=== PATIENT | female | born 1985 ===

== ENCOUNTER 2017-03-12 06:43 | Inpatient (IN) | payer OTHER, MEDICAID ==
[2017-03-12 07:05] VITALS: BMI 30.9
[2017-03-12] MEDS ORDERED: Sodium Citrate/Citric Acid 15 ml Sol PO ONE (07:05)
[2017-03-12] MEDS ORDERED: Lactated Ringer's 1,000 ML IV SCH ×2 (07:15)
[2017-03-12] MEDS ORDERED: Clindamycin 600mg/50ml NS 600 MG/50 ML BAG IVPB SCH (08:00)
[2017-03-12] MEDS ORDERED: Clindamycin 600mg/50ml NS 600 MG/50 ML BAG IVPB ONE (08:13)
[2017-03-12] MEDS ORDERED: Sodium Citrate/Citric Acid 15 ml Sol ONE (08:14)
[2017-03-12 08:58] LABS: BASO % 0.3 % (0.0-2.0); EOS # 0.1 K/uL (0.0-0.7); EOS % 0.7 % (0.0-4.0); HEMOGLOBIN 11.8 g/dL (11.0-16.0); LYMPH # 2.3 K/uL (1.0-4.3); LYMPH % 28.4 % (20.0-40.0); MEAN CORPUSCULAR HEMOGLOBIN 30.5 pg (27.0-31.0); MEAN CORPUSCULAR HGB CONC 34.3 g/dL (33.0-37.0); MEAN PLATELET VOLUME 11.4 fL (7.2-11.7); MONO # 0.7 K/uL (0.0-0.8); MONO % 8.6 % (0.0-10.0); NEUT # 5.1 K/uL (1.8-7.0); RBC 3.86 Mil/uL (3.80-5.20); RED CELL DISTRIBUTION WIDTH 14.4 % (11.5-14.5); WHITE BLOOD COUNT 8.2 K/uL (4.8-10.8)
[2017-03-12 09:04] LABS: SQUAMOUS EPITHIAL 2 /hpf (0-5); URINE BACTERIA OCC (<OCC); URINE BILIRUBIN NEGATIVE (NEGATIVE); URINE BLOOD NEGATIVE (NEGATIVE); URINE CLARITY Clear (Clear); URINE COLOR Yellow (YELLOW); URINE GLUCOSE (UA) NORMAL (Normal); URINE LEUKOCYTE ESTERASE NEG Leu/uL (Negative); URINE NITRATE NEGATIVE (NEGATIVE); URINE PROTEIN 1+ mg/dL (NEGATIVE); URINE UROBILINOGEN NORMAL mg/dL (0.2-1.0)
[2017-03-12 09:07] LABS: ALB/GLOB RATIO 1.1 (1.0-2.1); ALBUMIN 3.7 g/dL (3.5-5.0); ALT/SGPT 26 U/L (9-52); AST/SGOT 29 U/L (14-36); BLOOD UREA NITROGEN 11 mg/dL (7-17); CALCIUM 8.9 mg/dl (8.6-10.4); GFR AFRICAN-AMERICAN > 60; GFR NON-AFRICAN AMERICAN > 60
[2017-03-12] MEDS ORDERED: Morphine 1 mg/ml preservative-free Inj(Duramorph) ONE (09:08)
--- NOTE | 2017-03-12 10:05 | OBHP ---
Datetime: 03/12/2017 07:29 IP Adm Impression: Term, intrauterine ; No Active Labor IP Admit Plan: Admit to unit; Initiate Section protocol Admit Comment, IP Provider: Patient is a 31 year old at 39 weeks with LMP (06/15/16) and EDC ( 03/22/17) who presents complaining of abdominal pain and contractions that started at 3am this morning which she rates an 8/10. Patient is feeling the baby move and denies any bleeding or discharge from the vagina. Patient denies nausea, vomiting, chest pain. Patient last saw Dr. Cunningham last week and h as had anemia throughout this . ObHx: 1 (10/16/2009) due to failed trial of labor at 40 weeks, baby girl 7.5lbs. 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 Patient to [facility] in 2014 and have been together s abbi 2007 A/P 31 y/o F at 39 weeks, previous C/Section with uterine contractions. Category 1 tracin g. 1. stable, afebrile 2. Admit to L_D 3. See EFM and TOCO 4. Admission labs- see orders 5. Anesthesia Consult 6. NPO 7. Mcnulty insertion 8. Plans discussed with attending Dee Dee Sanchez, PGY1 Attending Note: patient seen and evaluated with Resident. I agree with the above. Patient is clini berkley stable. Plan: 1) as above - as per and discussed with Dr. Cunningham Pelvic Type - PN: Not Done Extremities - PN: Normal Abdomen - PN: Normal Breast - PN: Not Done Lungs - PN: Normal Heart - PN: Normal HEENT - PN: Normal General - PN: Normal FHR - Baseline A Provider: 140 Contraction Comments Provider: 2-5 Comments, ACOG Physical Exam: Abdomen: gravid. Soft. Fundal height 38 cm Gestation - Est Wks by US: 39.0 IP Hx Assessment: The History has been Reviewed and is Current EGA AdmitDate IP: 38.4 Vital Signs Provider: Reviewed IP Chief Complaint: Uterine contractions NICHD Variability Prov Fetus A: Moderate 6-25bpm NICHD Accel Fetus A IP Provider: 15X15 FHR Category Provider Fetus A: Category I NICHD Decel Fetus A IP Provider: None Dilatation, Provider: deferred Genitourinary Exam: Normal DTRs - PN: Not Done
[2017-03-13] MEDS: Folic Acid/Ascorbic Acid/Ferrous Sulfate 1 Tab PO SCH (10:19)
[2017-03-13] MEDS: Prenatal Multivit/Folic Acid/Iron Tab PO SCH (10:20)
[2017-03-13] MEDS ORDERED: Oxycodone/Acetaminophen 5/325 mg Tab PO PRN (13:24)
[2017-03-13] MEDS: Simethicone 80 mg Chewtab PO SCH ×3 (13:47→21:15)
[2017-03-13 19:21] LABS: BASO % 0.3 % (0.0-2.0); EOS # 0.1 K/uL (0.0-0.7); EOS % 0.4 % (0.0-4.0); HEMOGLOBIN 10.9 g/dL (11.0-16.0); LYMPH # 1.9 K/uL (1.0-4.3); MEAN CELL VOLUME 90.3 fL (81.0-99.0); MEAN CORPUSCULAR HGB CONC 33.2 g/dL (33.0-37.0); MEAN PLATELET VOLUME 9.7 fL (7.2-11.7); MONO # 1.1 K/uL (0.0-0.8); MONO % 7.8 % (0.0-10.0); NEUT # 10.8 K/uL (1.8-7.0); NEUT % 77.5 % (50.0-75.0); RBC 3.64 Mil/uL (3.80-5.20); RED CELL DISTRIBUTION WIDTH 14.9 % (11.5-14.5)
[2017-03-13 19:30] LABS: WHITE BLOOD COUNT 13.9 K/uL (4.8-10.8)
[2017-03-13] MEDS: Oxycodone/Acetaminophen 5/325 mg Tab PO PRN (21:15)
[2017-03-14] MEDS: Prenatal Multivit/Folic Acid/Iron Tab PO SCH (09:22)
[2017-03-14] MEDS: Simethicone 80 mg Chewtab PO SCH ×4 (09:22→22:20)
[2017-03-14] MEDS: Folic Acid/Ascorbic Acid/Ferrous Sulfate 1 Tab PO SCH (09:22)
[2017-03-14] MEDS: Oxycodone/Acetaminophen 5/325 mg Tab PO PRN (11:51)
[2017-03-14] MEDS ORDERED: Bisacodyl 5mg EC Tab PO ONE (13:27)
--- NOTE | 2017-03-14 18:45 | PCM.SURG1 ---
Surgeon's Initial Post Op Note - Surgeon's Notes Surgeon: Dr Childs Director [employer]: Dr Perkins Type of Anesthesia: Spinal Anesthesia Administered By: Dr Aden Pre-Operative Diagnosis: 31 yo that came in labor For Repeat Csection Operative Findings: Av uterus female infant Vtx Nl tubes and Ovaries , Lysis of adhesion Post-Operative Diagnosis: Same as above , Multiple adhesion Operation Performed: Repeat Csection , Lysis of adhesion Specimen/Specimens Removed: Cord ph Estimated Blood Loss: EBL {In ML}: 600 Blood Products Given: N/A Drains Used: No Drains Post-Op Condition: Good Date of Surgery/Procedure: 03/12/17 Time of Surgery/Procedure: 11:00
--- NOTE | 2017-03-14 18:48 | CP.PCM.PN ---
Subjective - Date & Time of Evaluation Date of Evaluation: 03/13/17 - Subjective Subjective: S/P Repeat csection Objective - Vital Signs/Intake and Output Vital Signs (last 24 hours): Temp Pulse Resp BP Pulse Ox 98.4 F 82 20 114/70 98 03/14/17 16:00 03/14/17 16:00 03/14/17 16:00 03/14/17 16:00 03/14/17 16:00 - Medications Medications: Current Medications Acetaminophen (Tylenol 325mg Tab) 650 mg PO Q6 PRN PRN Reason: Pain, Mild (1-3) Ascorbic Ac/Ferrous Sulf/Folic Acid (Iberet-Folic 500) 1 ter PO DAILY [facility] Last Admin: 03/14/17 09:22 Dose: 1 ter Docusate Sodium (Colace) 100 mg PO BID [facility] Last Admin: 03/14/17 17:25 Dose: 100 mg Ferrous Sulfate (Feosol) 325 mg PO DAILY [facility] Last Admin: 03/14/17 09:22 Dose: 325 mg Lactated Ringer's (Lactated Ringer's) 1,000 mls @ 125 mls/hr IV .Q8H [facility] Ibuprofen (Motrin Tab) 800 mg PO Q6H PRN PRN Reason: Pain, moderate (4-7) Last Admin: 03/13/17 13:46 Dose: 800 mg Ondansetron HCl (Zofran Inj) 4 mg IVP ONCE PRN PRN Reason: Nausea/Vomiting Oxycodone/Acetaminophen (Percocet 5/325 Mg Tab) 1 tab PO Q4H PRN PRN Reason: Pain, severe (8-10) Stop: 03/16/17 13:25 Last Admin: 03/14/17 05:00 Dose: 1 tab Oxycodone/Acetaminophen (Percocet 5/325 Mg Tab) 2 tab PO Q4H PRN PRN Reason: Pain, severe (8-10) Stop: 03/16/17 13:25 Last Admin: 03/14/17 11:51 Dose: 2 tab Multivit/Folic Acid/Iron () 1 tab PO DAILY [facility] Last Admin: 03/14/17 09:22 Dose: 1 tab Sennosides (Senokot Tab) 17.2 mg PO HS [facility] Last Admin: 03/13/17 21:14 Dose: 17.2 mg Simethicone (Mylicon Chew Tab) 80 mg PO QID [facility] Last Admin: 03/14/17 17:25 Dose: 80 mg - Labs Labs: 03/13/17 19:15 03/12/17 08:42 - Constitutional Appears: Well - Head Exam Head Exam: ATRAUMATIC, NORMAL INSPECTION, NORMOCEPHALIC - Eye Exam Eye Exam: EOMI, Normal appearance, PERRL Pupil Exam: NORMAL ACCOMODATION, PERRL - ENT Exam ENT Exam: Mucous Membranes Moist, Normal Exam - Neck Exam Neck Exam: Full ROM, Normal Inspection. absent: Lymphadenopathy - Respiratory Exam Respiratory Exam: Clear to Ausculation Bilateral, NORMAL BREATHING PATTERN - Cardiovascular Exam Cardiovascular Exam: REGULAR RHYTHM, +S1, +S2. absent: Murmur - GI/Abdominal Exam GI & Abdominal Exam: Soft, Normal Bowel Sounds. absent: Tenderness - Rectal Exam Rectal Exam: NORMAL INSPECTION - Exam Exam: Circumcision, NORMAL INSPECTION External exam: NORMAL EXTERNAL EXAM Speculum exam: NORMAL SPECULUM EXAM Bimanual exam: NORMAL BIMANUAL EXAM - Extremities Exam Extremities Exam: Full ROM, Normal Capillary Refill, Normal Inspection. absent : Joint Swelling, Pedal Edema - Back Exam Back Exam: NORMAL INSPECTION - Neurological Exam Neurological Exam: Alert, Awake, CN II-XII Intact, Normal Gait, Oriented x3 - Psychiatric Exam Psychiatric exam: Normal Affect, Normal Mood - Skin Skin Exam: Dry, Intact, Normal Color, Warm Assessment and Plan - Assessment and Plan (Free Text) Assessment: 31 S/P Repeat csection x2 Plan: Clinically stable
--- NOTE | 2017-03-14 18:51 | CP.PCM.PN ---
Subjective - Date & Time of Evaluation Date of Evaluation: 03/14/17 Time of Evaluation: 18:49 - Subjective Subjective: 31 yo S/P Repeat POD# 2 Objective - Vital Signs/Intake and Output Vital Signs (last 24 hours): Temp Pulse Resp BP Pulse Ox 98.4 F 82 20 114/70 98 03/14/17 16:00 03/14/17 16:00 03/14/17 16:00 03/14/17 16:00 03/14/17 16:00 - Medications Medications: Current Medications Acetaminophen (Tylenol 325mg Tab) 650 mg PO Q6 PRN PRN Reason: Pain, Mild (1-3) Ascorbic Ac/Ferrous Sulf/Folic Acid (Iberet-Folic 500) 1 ter PO DAILY [facility] Last Admin: 03/14/17 09:22 Dose: 1 ter Docusate Sodium (Colace) 100 mg PO BID [facility] Last Admin: 03/14/17 17:25 Dose: 100 mg Ferrous Sulfate (Feosol) 325 mg PO DAILY [facility] Last Admin: 03/14/17 09:22 Dose: 325 mg Lactated Ringer's (Lactated Ringer's) 1,000 mls @ 125 mls/hr IV .Q8H [facility] Ibuprofen (Motrin Tab) 800 mg PO Q6H PRN PRN Reason: Pain, moderate (4-7) Last Admin: 03/13/17 13:46 Dose: 800 mg Ondansetron HCl (Zofran Inj) 4 mg IVP ONCE PRN PRN Reason: Nausea/Vomiting Oxycodone/Acetaminophen (Percocet 5/325 Mg Tab) 1 tab PO Q4H PRN PRN Reason: Pain, severe (8-10) Stop: 03/16/17 13:25 Last Admin: 03/14/17 05:00 Dose: 1 tab Oxycodone/Acetaminophen (Percocet 5/325 Mg Tab) 2 tab PO Q4H PRN PRN Reason: Pain, severe (8-10) Stop: 03/16/17 13:25 Last Admin: 03/14/17 11:51 Dose: 2 tab Multivit/Folic Acid/Iron () 1 tab PO DAILY [facility] Last Admin: 03/14/17 09:22 Dose: 1 tab Sennosides (Senokot Tab) 17.2 mg PO HS [facility] Last Admin: 03/13/17 21:14 Dose: 17.2 mg Simethicone (Mylicon Chew Tab) 80 mg PO QID [facility] Last Admin: 03/14/17 17:25 Dose: 80 mg - Labs Labs: 03/13/17 19:15 03/12/17 08:42 - Constitutional Appears: Well - Head Exam Head Exam: ATRAUMATIC, NORMAL INSPECTION, NORMOCEPHALIC - Eye Exam Eye Exam: EOMI, Normal appearance, PERRL Pupil Exam: NORMAL ACCOMODATION, PERRL - ENT Exam ENT Exam: Mucous Membranes Moist, Normal Exam - Neck Exam Neck Exam: Full ROM, Normal Inspection. absent: Lymphadenopathy - Respiratory Exam Respiratory Exam: Clear to Ausculation Bilateral, NORMAL BREATHING PATTERN - Cardiovascular Exam Cardiovascular Exam: REGULAR RHYTHM, +S1, +S2. absent: Murmur - GI/Abdominal Exam GI & Abdominal Exam: Soft, Normal Bowel Sounds. absent: Tenderness - Rectal Exam Rectal Exam: NORMAL INSPECTION - Exam Exam: Circumcision, NORMAL INSPECTION External exam: NORMAL EXTERNAL EXAM Speculum exam: NORMAL SPECULUM EXAM Bimanual exam: NORMAL BIMANUAL EXAM - Extremities Exam Extremities Exam: Full ROM, Normal Capillary Refill, Normal Inspection. absent : Joint Swelling, Pedal Edema - Back Exam Back Exam: NORMAL INSPECTION - Neurological Exam Neurological Exam: Alert, Awake, CN II-XII Intact, Normal Gait, Oriented x3 - Psychiatric Exam Psychiatric exam: Normal Affect, Normal Mood - Skin Skin Exam: Dry, Intact, Normal Color, Warm Assessment and Plan - Assessment and Plan (Free Text) Assessment: S/P Repeat cestion Plan: Clinical stable possible Discharge Home
[2017-03-15] MEDS: Oxycodone/Acetaminophen 5/325 mg Tab PO PRN (06:34)
[2017-03-15] MEDS: Prenatal Multivit/Folic Acid/Iron Tab PO SCH (09:21)
[2017-03-15] MEDS: Folic Acid/Ascorbic Acid/Ferrous Sulfate 1 Tab PO SCH (09:21)
[2017-03-15] MEDS: Simethicone 80 mg Chewtab PO SCH ×2 (09:22→14:10)
[2017-03-15 09:24] VITALS: BP 120/69; PULSE 60; RESP 18; TEMP 98.2; O2SAT 96
[2017-03-15] MEDS ORDERED: Influenza Vaccine 60 mcg/0.5 mL SYR (4YR UP) IM ONE (13:41)
--- NOTE | 2017-03-24 13:52 | OBADHP ---
Datetime: 03/12/2017 07:29 Admit Comment, IP Provider: Patient is a 31 year old at 39 weeks with LMP (06/15/16) and EDC ( 03/22/17) who presents complaining of abdominal pain and contractions that started at 3am this morning which she rates an 8/10. Patient is feeling the baby move and denies any bleeding or discharge from the vagina. Patient denies nausea, vomiting, chest pain. Patient last saw Dr. Cunningham last week and h as had anemia throughout this . ObHx: 1 (10/16/2009) due to failed trial of labor at 40 weeks, baby girl 7.5lbs. 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 Patient to [facility] in 2014 and have been together s abbi 2007 A/P 31 y/o F at 39 weeks, previous C/Section with uterine contractions. Category 1 tracin g. 1. stable, afebrile 2. Admit to L_D 3. See EFM and TOCO 4. Admission labs- see orders 5. Anesthesia Consult 6. NPO 7. Mcnulty insertion 8. Plans discussed with attending Dee Dee Sanchez, PGY1 Attending Note: patient seen and evaluated with Resident. I agree with the above. Patient is clini berkley stable. Plan: 1) as above - as per and discussed with Dr. Cunningham Pelvic Type - PN: Not Done Extremities - PN: Normal Abdomen - PN: Normal Breast - PN: Not Done Lungs - PN: Normal Heart - PN: Normal HEENT - PN: Normal General - PN: Normal FHR - Baseline A Provider: 140 Contraction Comments Provider: 2-5 Comments, ACOG Physical Exam: Abdomen: gravid. Soft. Fundal height 38 cm Gestation - Est Wks by US: 39.0 IP Hx Assessment: The History has been Reviewed and is Current Vital Signs Provider: Reviewed IP Chief Complaint: Uterine contractions NICHD Variability Prov Fetus A: Moderate 6-25bpm NICHD Accel Fetus A IP Provider: 15X15 FHR Category Provider Fetus A: Category I NICHD Decel Fetus A IP Provider: None Dilatation, Provider: deferred Genitourinary Exam: Normal DTRs - PN: Not Done EGA AdmitDate IP: 38.4 IP Adm Impression: Term, intrauterine ; No Active Labor IP Admit Plan: Admit to unit; Initiate Section protocol
--- NOTE | 2017-03-24 13:54 | OBDCSUM ---
Datetime: 03/15/2017 13:46 Discharge Instructions, Provider: Routine instructions given Contraception discussed, Prov: Yes Discharge Diagnosis Prov Other:
--- NOTE | 2017-03-24 13:54 | OBDS ---
DELIVERY PERSONNEL Delivery Doctor: Cosme Cunningham MD Scrub Nurse: Stephanie Knapp Polisher Brass: Riki Machuca RN Anesthesiologist: colton Resident: carly MATERNAL INFORMATION Delivery Anesthesia: Spinal Placenta Cultured: No Maternal Complications: None LABOR SUMMARY EDC: 03/22/2017 00:00 No. Babies in Womb: 1 Attempted: No Labor Anesthesia: None LABOR INFORMATION Reason for Induction: Not Applicable Oxytocin: N/A Group B Beta Strep: Positive Antibiotics # of Doses: 1 Antibiotics Time of Last Dose: 10:00am Steroids Given: None Reason Steroids Not Administered: Not Applicable MEMBRANES Membranes Rupture Method: Artificial Rupture of Membranes: 03/12/2017 10:18 Length of Rupture (hrs): 0.00 Amniotic Fluid Color: Clear Amniotic Fluid Amount: Moderate Amniotic Fluid Odor: Normal STAGES OF LABOR Stage 3 hrs: 0 Stage 3 min: 2 CSECTION DELIVERY Primary Indication: Repeat Elective CSection Urgency: N/A CSection Incidence: Repeat Labor: N/A Elective: Elective CSection Incision: Lower Uterine Transverse BABY A INFORMATION Infant Delivery Date/Time: 03/12/2017 10:18 Method of Delivery: Born in Route : No : N/A Forceps: N/A Vacuum Extraction: N/A Shoulder Dystocia : No SHOULDER DYSTOCIA BABY A Delivery Date/Time: 03/12/2017 10:18 PRESENTATION/POSITION BABY A Presentation: Cephalic Breech Presentation: N/A PLACENTA INFORMATION BABY A Placenta Delivery Time : 03/12/2017 10:20 Placenta Method of Delivery: Manual Removal Placenta Status: Delivered SCORES BABY A Heart Rate 1 min: >100 bpm Resp Effort 1 min: Good Cry Reflex Irritability 1 min: Cough or Sneeze or Pulls Away Muscle Tone 1 min: Active Motion Color 1 min: Body [place], Extremities Blue Resuscitation Effort 1 min: N/A SCORE 1 MIN: 9 Heart Rate 5 min: >100 bpm Resp Effort 5 min: Good Cry Reflex Irritability 5 min: Cough or Sneeze or Pulls Away Muscle Tone 5 min: Active Motion Color 5 min: Body [place], Extremities Blue Resuscitation Effort 5 min: N/A SCORE 5 MIN: 9 INFANT INFORMATION BABY A Gestational Age at Delivery: 38.5 Gestational Status: Term Outcome : Liveborn Condition : Stable Sex: Female IDENTIFICATION/MEDS BABY A ID Band Number: [id number] ID Band Location: Left Leg; Left Arm Sensor Applied: Yes Sensor Number: [id number] Sensor Location : Cord Clamp WEIGHT/LENGTH BABY A Birthweight (gms): 3155 Infant Weight (lb): 6 Infant Weight (oz): 15 Infant Length Inches: 18.75 Length cms: 47.6 CORD INFORMATION BABY A No. Cord Vessels: 3 Nuchal Cord : N/A Cord Blood Taken: Yes Suction: None
--- NOTE | 2017-03-25 04:32 | OP ---
PROCEDURE DATE: PREOPERATIVE DIAGNOSIS: The patient is 31-year-old female, 2, para 1, at 39 weeks gestation, who came in for repeat section and labor complaining of lower abdominal pain. POSTOPERATIVE DIAGNOSIS: The patient is 31-year-old female, 2, para 1, at 39 weeks gestation, who came in for repeat section and labor complaining of lower abdominal pain. PROCEDURE: Repeat section and lysis of adhesion. SURGEON: Cammie Cunningham MD RN PEDIATRIC: Michelle Perkins MD TYPE OF ANESTHESIA: Spinal. ANESTHESIOLOGIST: Merissa Watts MD COMPLICATIONS: None. ESTIMATED BLOOD LOSS: Approximately 600 mL. IV FLUID INTAKE: 1500 mL. URINE OUTPUT: 200 mL with clear urine at the end of the procedure. DESCRIPTION OF PROCEDURE: The patient was taken to the operating room where anesthesia was found to be adequate. She was then prepped and draped in normal sterile fashion in a dorsal supine position with a leftward tilt. A Pfannenstiel incision was made with a scalpel and carried to the underlying layers of the fascia with the Bovie. The fascia was then excised in the midline. The incision was extended laterally with the Sharma scissors. The superior aspect of the fascial incision was then grasped with the Autumn clamps, elevated, and the underlying rectus muscles were dissected off bluntly. Attention was then turned to the inferior aspect of the incision, which in a similar fashion was grasped, tented up with the Autumn clamps, and the rectus muscle was dissected off bluntly. The rectus muscle was then in the midline and the peritoneum was identified and tented up and entered sharply with the Metzenbaum scissors. The peritoneal incision was then extended superiorly and inferiorly with good visualization of the bladder. The bladder blade was then inserted and the vesicouterine peritoneum was identified, grasped with pickups and entered sharply with the Metzenbaum scissors. This incision was then extended laterally and the bladder flap was created digitally. The bladder blade was then reinserted and the lower uterine segment was incised in a transverse fashion with the scalpel. The uterine incision was then extended laterally with the bandage scissors. The bladder blade was then removed. The was handed off to the awaiting station installer. The placenta was then removed manually and the uterus was exteriorized and cleaned of all clots and debris. The uterine incision was repaired with 1-0 Vicryl in a running locking fashion. A second layer of the same suture was used to obtain excellent hemostasis. The gutters were cleaned of all clots and debris. The peritoneum was reapproximated with 2-0 chromic. The fascia was reapproximated with 0-Vicryl in a running fashion. The skin was closed with 4-0 Monocryl. The patient tolerated the procedure well. Sponge, lap, and needle counts were correct x2. The patient was then taken to Recovery in stable condition. Cammie Cunningham MD
== END 2017-03-15 15:07 | disposition home or self-care (01) | DRG 766 ==
LOC: C.EROB 06:43 → C.4D 07:06 → UNDOADMIN 07:23 → C.4M 13:27
PROVIDERS: ADMIT Obstetrics & Gynecology; ATTEND Obstetrics & Gynecology
PROC: 10D00Z1 Extraction of Products of Conception, Low, Open Approach (ICD-10-PCS; principal; 2017-03-12)
DX: O34.211 Maternal care for low transverse scar from previous cesarean delivery (principal); Z3A.39 39 weeks gestation of pregnancy; Z23 Encounter for immunization; Z37.0 Single live birth